=== PATIENT | female | born 1975 | race Caucasian/White ===

== ENCOUNTER → 2017-09-20 | Outpatient (CLI) | payer OTHER ==
[~2017-09-20] MED LIST: BCP TD; DEPO-PROVER400 MG/ML; HCTZ 25MG TAB25 MG PO; NORCO 325 MG-51 TAB PO; PRINIVIL10 MG PO; PROZAC 20MG20 MG; SAVELLA50 MG PO; UNKNOWN B/P MED
== END ==
LOC: MC.RAD 08-11 07:20
DX: Z12.31 Encounter for screening mammogram for malignant neoplasm of breast (principal)

== ENCOUNTER → 2019-09-27 | Outpatient (CLI) | payer BC | LOC: MC.RAD 08:29 | DX: Z12.31 Encounter for screening mammogram for malignant neoplasm of breast (principal); Z01.419 Encounter for gynecological examination (general) (routine) without abnormal findings ==

== ENCOUNTER → 2021-09-21 | Outpatient (CLI) | payer BC | LOC: MC.RAD 11:04 | DX: Z12.31 Encounter for screening mammogram for malignant neoplasm of breast (principal) ==